=== PATIENT | female | born 1950 | race Caucasian/White ===

== ENCOUNTER 2016-08-24 20:32 | Emergency (ER) | payer MEDICARE, OTHER ==
[2016-08-24] MEDS ORDERED: Levofloxacin 500 MG Tab PO SCH (21:30)
[2016-08-24 21:35] VITALS: BP 139/88
--- NOTE | 2016-08-24 21:36 | EDM.PDOC ---
ED HPI GENERAL MEDICAL PROBLEM - General Chief Complaint: General Stated Complaint: CELLULITIS LT LEG Time Seen by Provider: 08/24/16 21:20 Source of Information: Reports: Patient, Family History Limitations: Reports: No Limitations - History of Present Illness INITIAL COMMENTS - FREE TEXT/NARRATIVE: Jolanta fell last week, contusing both buttocks and producing an abrasion to L lower leg. She was seen in Clinic on Wednesday and dispensed Keflex 250 mg qid for treatment. [place], and now reports minor swelling and redness of the LL leg just below the abrasion, with some tenderness. She has not been dressing the wound. - Related Data Allergies Allergy/AdvReac Type Severity Reaction Status Date / Time Sulfa (Sulfonamide Allergy Rash Verified 08/24/16 21:30 Antibiotics) Home Meds: Home Meds Levofloxacin [Levaquin] 500 mg PO Q24H #7 tablet 08/24/16 [Rx] ED ROS GENERAL - Review of Systems Review Of Systems: ROS reveals no pertinent complaints other than HPI. ED EXAM, GENERAL - Physical Exam Exam: See Below Exam Limited By: No Limitations General Appearance: Alert, WD/WN, No Apparent Distress Head: Normocephalic Neck: Normal Inspection, Supple Respiratory/Chest: Lungs Clear Cardiovascular: Regular Rate, Rhythm Back Exam: Normal Inspection Extremities: Normal Range of Motion, Increased Warmth, Redness (Left lower leg, minor abrasion of the Left lower leg) Neurological: Alert, Oriented, CN II-XII Intact, Normal Cognition, Normal Gait, No Motor/Sensory Deficits Psychiatric: Normal Affect, Normal Mood Skin Exam: Warm, Dry, Erythema, Other (abrasion of Left lower leg) Lymphatic: No Adenopathy Course - Vital Signs Text/Narrative:: I administered Levaquin 500 mg po during ED visit. - Orders/Labs/Meds Orders: Active Orders 24 hr Category Date Time Status Levofloxacin [Levaquin] Med 08/24/16 21:30 Active 500 mg PO Q24H Medication Orders Levofloxacin (Levaquin) 500 mg PO Q24H [facility] Meds: Medications Generic Name Dose Route Start Last Admin Trade Name Freq PRN Reason Stop Dose Admin Levofloxacin 500 mg 08/24/16 21:30 Levaquin PO Q24H [facility] Departure - Departure Time of Disposition: 21:35 Disposition: Home, Self-Care 01 Condition: Good Clinical Impression: Cellulitis of left lower leg - Discharge Information Prescriptions: Levofloxacin [Levaquin] 500 mg PO Q24H #7 tablet Forms: ED Department Discharge - Problem List & Annotations (1) Cellulitis of left lower leg SNOMED Code(s): 212545344 Code(s): L03.116 - CELLULITIS OF LEFT LOWER LIMB Status: Acute Current Visit: Yes Annotation/Comment:: Minor cellulitis of Left lower leg, managed with Levquin 500 mg qd, local wound cares, and keep dressed. - Problem List Review Problem List Initiated/Reviewed/Updated: Yes - My Orders Last 24 Hours: My Active Orders 08/24/16 21:30 Levofloxacin [Levaquin] 500 mg PO Q24H - Assessment/Plan Last 24 Hours: My Active Orders 08/24/16 21:30 Levofloxacin [Levaquin] 500 mg PO Q24H Plan: Follow up with PCP if needed.
== END 2016-08-24 21:45 | disposition home or self-care (01) ==
LOC: FB.ED 20:32
DX: L03.116 Cellulitis of left lower limb (principal); Z88.2 Allergy status to sulfonamides
CPT/HCPCS: 99283; A9270